=== PATIENT | male | born 1965 | race Two or more races ===

== ENCOUNTER 2024-05-01 08:48 | Emergency (ER) | payer MEDICAID, SELFPAY ==
[2024-05-01 09:03] VITALS: BP 178/103; PULSE 80; RESP 20; TEMP 36.6; O2SAT 97; BMI 38.0
--- NOTE | 2024-05-01 09:17 | XR_ITS ---
Examination: Knee, right , 3 views Technique: Knee AP, lateral, oblique 3 views Date and time of exam: April 23, 2024 at 0918 hours INDICATIONS: Fell 6 months ago with injury to the knee, persistent knee pain. FINDINGS: Advanced tricompartment osteoarthritis, severe narrowing medial and patellofemoral joints No fracture No dislocation IMPRESSION: Advanced tricompartment osteoarthritis
--- NOTE | 2024-05-01 09:24 | PD.EDLOWEX ---
Lower Extremity Injury RME/HPI General Chief Complaint: Extremity Injury, Lower Stated Complaint: RIGHT KNEE PAIN, DIFFICULTY WALKING X 7 MONTHS Time Seen by Provider: 05/01/24 08:55 Arrival date/time: 05/01/24 08:48 58-year-old male presents to the emergency department complaints of right knee pain since September after an injury patient ports no other complaints Limitations: no limitations Related Data Previous Rx's ?Medication ?Instructions ?Recorded diclofenac sodium 1 % topical gel 2.25 inch topical QID PRN pain 05/01/24 #100 grams meloxicam 7.5 mg tablet 7.5 mg PO QDAY 7 days #7 tabs 05/01/24 Allergies Allergy/AdvReac Type Severity Reaction Status Date / Time No Known Allergies Allergy Verified 05/01/24 08:51 Review of Systems Review of Systems Systems Reviewed: All systems reviewed, normal except as documented Constitutional Constitutional: Reports system reviewed and no additional complaints, except as documented, Denies fever(s) and Denies headache(s) Eyes Eyes: Reports system reviewed and no additional complaints, except as documented and Denies blurry vision ENT Ears, Nose, Mouth, and Throat: Reports system reviewed and no additional complaints, except as documented, Denies headache(s), Denies nasal congestion and Denies nasal discharge Cardiovascular Cardiovascular: Reports system reviewed and no additional complaints, except as documented, Denies chest pain and Denies dyspnea Respiratory Respiratory: Reports system reviewed and no additional complaints, except as documented, Denies chest congestion, Denies cough and Denies dyspnea Gastrointestinal Gastrointestinal: Reports system reviewed and no additional complaints, except as documented and Denies abdominal pain Musculoskeletal Musculoskeletal: Reports system reviewed and no additional complaints, except as documented, Reports arthralgias and Denies deformity Integumentary/Breasts Skin/Breast: Reports system reviewed and no additional complaints, except as documented and Denies rash Neurologic Neurologic: Reports system reviewed and no additional complaints, except as documented, Reports as per HPI and Denies headache(s) Past Medical History Social History SMOKING STATUS: Light (< 1 pack/day) ED Exam General Limitations: Present no limitations General appearance: Present alert and in no apparent distress Head Head exam: Present atraumatic Eye Eye exam: Present normal appearance, PERRL and EOMI ENT ENT exam: Present normal exam, normal oropharynx and mucous membranes moist Neck Neck exam: Present normal inspection, full ROM and trachea midline Chest Chest inspection: Present normal inspection and symmetric chest wall rise Respiratory Respiratory exam: Present normal lung sounds bilaterally Cardiovascular Cardiovascular exam: Present regular rate, normal rhythm and normal heart sounds Abdominal Exam Abdominal exam: Present soft and normal bowel sounds Extremities Exam Extremities exam: Present full ROM, tenderness, normal capillary refill and joint swelling; Absent pedal edema or calf tenderness Back Exam Back exam: Present normal inspection and full ROM Neurological Exam Neurological exam: Present alert, oriented X3 and CN II-XII intact Psychiatric Psychiatric exam: Present normal affect and normal mood Skin Skin exam: Present warm, dry, intact and normal color Course Quality Measures none Orders Category Date Time Status dustin wrap [Splint / Immobilizer] STAT Care 05/01/24 10:25 Completed XR knee RT 3V Stat Exams 05/01/24 09:17 Completed Ketorolac Inj [Toradol Inj] Med 05/01/24 09:17 Discontinued 30 mg IM X1 ONE Vital Signs Vital signs: Vital Signs Temperature 97.8 F 05/01/24 09:03 Pulse Rate 80 05/01/24 09:03 Respiratory Rate 20 05/01/24 09:03 Blood Pressure 178/103 H 05/01/24 09:03 Pulse Oximetry (%) 97 05/01/24 09:03 Oxygen Delivery Method Room Air 05/01/24 09:03 O2 saturation 97% room air within normal limits Extremity Injury, Lower MDM Narrative MDM Narrative:: 58-year-old male presents to the emergency department complaints of right knee pain since September after an injury patient ports no other complaints On exam patient well-appearing patient does not appear ill or toxic On exam patient has mild swelling and tenderness to the right knee patient is ambulatory X-ray of the right knee obtained no acute fracture dislocation noted Patient instructed to follow-up PCP and or get MRI for further evaluation Patient givenToradol for pain Patient discharged home in no distress to follow-up with primary care doctor in the next 24 to 48 hours and for any worsening symptoms to return to the ER immediately Patient data External records reviewed:: [facility] previous records Clinical information provided by:: patient Social determinants that could affect healthcare access:: none Patient has the following chronic illnesses:: See history How is presenting disease/condition affected by chronic disease/condition?: caused by Evaluation data The following diagnostics were reviewed and interpreted by me:: radiology exam(s) Lab and/or radiology exams considered but not ordered:: Radiology obtain Interpretation Summary: Reviewed by me Medications / Prescriptions Medications or Prescriptions considered but not ordered:: Given Medication administrations:: Medication Administration History Discontinued Medications Ketorolac Tromethamine (Ketorolac Inj 30 Mg/Ml Vial) 30 mg IM X1 ONE Stop: 05/01/24 09:18 Last Admin: 05/01/24 09:45 Dose: 30 mg Documented By: KM Given Consultations Consultation(s) initiated? (list below): No Diagnosis Extremity Injury, Lower Differential Diagnosis: acute internal derangement of knee and other (Knee sprain, knee fracture) Most likely diagnosis given after review of the tests above:: Knee sprain Admission Indicated Admission indicated?: not indicated Admission Request Was there a request for admission?: No Disposition Plan Disposition Plan: Discharge Discharge Attestation Discharge Attestation: The patient and all family members were given an opportunity to ask questions and understood the discharge instructions. Discharge instructions specifically effects, indications for sooner follow up or return to the emergency department, and the expected course of current diagnosis. Patient condition: Stable Discharge Plan Plan Patient Disposition: HOME (Self Care) Prescriptions/Referrals Prescriptions/Med Rec: New meloxicam 7.5 mg tablet 7.5 mg PO QDAY 7 Days Qty: 7 0RF diclofenac sodium 1 % gel 2.25 inch topical QID PRN (Reason: pain) Qty: 100 0RF Rx Instructions: apply to knee 4 times a day as needed Problem List Clinical Impression: Osteoarthritis of right knee Patient/Caregiver Discharge Instructions Discharge Activity: activity as tolerated Education Materials: ED Osteoarthritis Additional Instructions: Please follow up with your primary care doctor in the next 24-48hrs for any worsening symptoms return here immediately Print Language: Burmese Stand Alone Forms: [place] Award Info., Patient Portal Info Letter PA/[employer] Supervising Physician PA/[employer] Supervising Physician: Dr. Silver
[2024-05-01] MEDS: KETOROLAC INJ 30 MG/ML VIAL IM (09:45)
== END 2024-05-01 11:10 | disposition home or self-care (01) ==
LOC: SERX 10:29
PROVIDERS: Emergency Provider Emergency Medicine
DX: M17.11 Unilateral primary osteoarthritis, right knee (principal)
CPT/HCPCS: 73562; 96372; 99283; J1885